=== PATIENT | female | born 1995 | race American Indian/Alaskan Native ===

== ENCOUNTER 2020-11-13 14:41 | Emergency (ER) | payer OTHER ==
[2020-11-13 16:07] VITALS: BP 122/60
[2020-11-13 16:30] LABS: Basophils % (Auto) 0.6 % (0.0-1.8); Eosinophils # (Auto) 0.1 K/mm3 (0.0-0.4); Eosinophils % (Auto) 1.4 % (0.0-4.3); Hematocrit 37.3 % (30.3-42.9); Hemoglobin 12.2 gm/dl (10.1-14.3); Lymphocytes # (Auto) 2.7 K/mm3 (1.2-5.4); Lymphocytes % (Auto) 33.1 % (13.4-35.0); Mean Corpuscular HGB Conc 33 % (30-34); Mean Corpuscular Volume 81 fl (79-97); Monocytes # (Auto) 0.6 K/mm3 (0.0-0.8); Monocytes % (Auto) 7.3 % (0.0-7.3); Platelet Count 266 K/mm3 (140-440); Red Blood Count 4.58 M/mm3 (3.65-5.03); Red Cell Distribution Width 14.5 % (13.2-15.2)
[2020-11-13 16:55] LABS: Alanine Aminotransferase 25 units/L (7-56); Albumin 4.2 g/dL (3.9-5); Blood Urea Nitrogen 13 mg/dL (7-17); Calcium 9.4 mg/dL (8.4-10.2); Hemolysis Index 28
[2020-11-13 17:08] LABS: BUN/Creatinine Ratio 19
[2020-11-13 17:24] LABS: Bacteria,Urine 2+ /HPF (Negative); Bilirubin,Urine NEG (Negative); Blood,Urine NEG (Negative); Color,Urine Yellow (Yellow); Mucus,Urine FEW /HPF; Protein,Urine <15 mg/dL mg/dL (Negative); Urobilinogen,Urine < 2.0 mg/dL (<2.0)
[2020-11-13] MEDS ORDERED: HYOSCYAMINE SUBL 0.125 MG TAB SL ONE (21:03)
[2020-11-13] MEDS ORDERED: KETOROLAC 30 MG/1 ML INJ IV STA (21:03)
--- NOTE | 2020-11-13 22:24 | Cat Scan Report ---
CT ABDOMEN AND PELVIS WITH CONTRAST INDICATION / CLINICAL INFORMATION: Patient complains of lower abdominal pain.. TECHNIQUE: Axial CT images were obtained through the abdomen and pelvis following the administration of intraven ous contrast. All CT scans at this location are performed using CT dose reduction for ALARA by means of automated exposure control. COMPARISON: None available. FINDINGS: LOWER CHEST: No significant abnormality. LIVER: No significant abnormality. GALLBLADDER: Calcified stones are seen within the gallbladder lumen. No gallbladder wall thickening o r pericholecystic edema/inflammation. PANCREAS: No significant abnormality. SPLEEN: No significant abnormality. ADRENALS: No significant abnormality. KIDNEYS / URETERS: No significant abnormality. URINARY BLADDER: No significant abnormality. REPRODUCTIVE ORGANS: There is a 2.0 cm left ovarian cyst. STOMACH / SMALL BOWEL: No significant abnormality. COLON: No significant abnormality. APPENDIX: No significant abnormality. PERITONEUM: No free fluid. No free air. No fluid collection. LYMPH NODES: No significant adenopathy. AORTA / ARTERIES: No significant abnormality. IVC / VEINS: No significant abnormality. SKELETAL SYSTEM: No significant abnormality. ADDITIONAL FINDINGS: None. IMPRESSION: 1. No acute abdominopelvic abnormality. 2. Uncomplicated cholelithiasis. 3. 2 cm left ovarian cyst. Signer Name: Isrrael Ratliff MD Signed: 11/13/2020 10:19 PM Workstation Name: [id number]
--- NOTE | 2020-12-15 22:38 | Emergency Department Report ---
ED Abdominal Pain HPI - General Chief Complaint: Abdominal Pain Stated Complaint: ABD PAIN Time Seen by Provider: 11/13/20 18:27 Source: patient Mode of arrival: Ambulatory Limitations: No Limitations - History of Present Illness Initial Comments: 25-year-old -[place] female with no sniffing past medical history presents emerged department complaining of abdominal pain off and on since May 2020 associated with occasional episodes of nausea and and vomiting. She reports no diarrhea, no hemoptysis no hematemesis no hematochezia, no fever, chills, sweats sweats patient does have a and reports been having some some issues with his pain that have been worsening since that time. She reports no trauma. MD Complaint: abdominal pain Location: LUQ, RUQ Radiation: epigastric Migration to: no migration Severity scale (0 -10): 0 Quality: cramping, aching, dull Consistency: intermittent, colicky Improves With: nothing Worsens With: nothing Associated Symptoms: nausea, vomiting. denies: constipation, dysuria, hematemesis, hematuria, anorexia, syncope - Related Data Previous Rx's Medication Instructions Recorded Last Taken Type Ketorolac [Toradol] 10 mg PO Q6H PRN #14 tablet 11/13/20 Unknown Rx Allergies Allergy/AdvReac Type Severity Reaction Status Date / Time No Known Allergies Allergy Unverified 09/17/19 06:55 ED Review of Systems ROS: Stated complaint: ABD PAIN Other details as noted in HPI Comment: All other systems reviewed and negative ED Past Medical Hx - Social History Smoking Status: Never Smoker Substance Use Type: None - Medications Home Medications: Home Medications Medication Instructions Recorded Confirmed Last Taken Type Ketorolac [Toradol] 10 mg PO Q6H PRN #14 tablet 11/13/20 Unknown Rx ED Physical Exam - General Limitations: No Limitations General appearance: alert, in no apparent distress - Head Head exam: Present: atraumatic, normocephalic - Eye Eye exam: Present: normal appearance, PERRL, EOMI - ENT ENT exam: Present: mucous membranes moist - Neck Neck exam: Present: normal inspection - Respiratory Respiratory exam: Present: normal lung sounds bilaterally. Absent: respiratory distress, wheezes, rales - Cardiovascular Cardiovascular Exam: Present: regular rate, normal rhythm. Absent: systolic murmur, diastolic murmur, rubs, gallop - GI/Abdominal GI/Abdominal exam: Present: soft, tenderness (To the upper quadrant with deep palpation. Questionable [place] sign. No Rovsing, no Banks Sullivan, no [place] sign), normal bowel sounds. Absent: guarding, rebound, rigid - Extremities Exam Extremities exam: Present: normal inspection - Back Exam Back exam: Present: normal inspection - Neurological Exam Neurological exam: Present: alert, oriented X3 - Psychiatric Psychiatric exam: Present: normal affect, normal mood - Skin Skin exam: Present: warm, dry, intact, normal color. Absent: rash ED Course Vital Signs 11/13/20 11/13/20 16:02 23:00 Temperature 99.3 F Pulse Rate 66 69 Respiratory 18 16 Rate Blood Pressure 122/60 [Right] O2 Sat by Pulse 100 99 Oximetry ED Medical Decision Making - Lab Data Result diagrams: 11/13/20 16:12 11/13/20 16:12 - Radiology Data Radiology results: report reviewed [address] [place] [address] Cat Scan Report Signed Patient: LOREN POLLARD MR#: [id number] : 1995 Acct:[id number] Age/Sex: 25 / F ADM Date: 11/13/20 Loc: ED Attending Dr: Ordering Physician: WANG COLINDRES Date of Service: 11/13/20 Procedure(s): CT abdomen pelvis w con Accession Number(s): [id number] cc: WANG COLINDRES CT ABDOMEN AND PELVIS WITH CONTRAST INDICATION / CLINICAL INFORMATION: Patient complains of lower abdominal pain.. TECHNIQUE: Axial CT images were obtained through the abdomen and pelvis following the administration of intravenous contrast. All CT scans at this location are performed using CT dose reduction for [facility] by means of automated exposure control. COMPARISON: None available. FINDINGS: LOWER CHEST: No significant abnormality. LIVER: No significant abnormality. GALLBLADDER: Calcified stones are seen within the gallbladder lumen. No gallbladder wall thickening or pericholecystic edema/inflammation. PANCREAS: No significant abnormality. SPLEEN: No significant abnormality. ADRENALS: No significant abnormality. KIDNEYS / URETERS: No significant abnormality. URINARY BLADDER: No significant abnormality. REPRODUCTIVE ORGANS: There is a 2.0 cm left ovarian cyst. STOMACH / SMALL BOWEL: No significant abnormality. COLON: No significant abnormality. APPENDIX: No significant abnormality. PERITONEUM: No free fluid. No free air. No fluid collection. LYMPH NODES: No significant adenopathy. AORTA / ARTERIES: No significant abnormality. IVC / VEINS: No significant abnormality. SKELETAL SYSTEM: No significant abnormality. ADDITIONAL FINDINGS: None. IMPRESSION: 1. No acute abdominopelvic abnormality. 2. Uncomplicated cholelithiasis. 3. 2 cm left ovarian cyst. Signer Name: Summer Rodgers MD Signed: 11/13/2020 10:19 PM Workstation Name: [id number] Transcribed By: SS Dictated By: SUMMER RODGERS Electronically Authenticated By: SUMMER RODGERS Signed Date/Time: 11/13/202218 DD/ 16 TD/TT: Print Cancel - Medical Decision Making This patient presents with abdominal pain of unclear etiology. A CT scan was performed to evaluate for potential causes of the abdominal pain, however, neither the clinical exam nor the CT has identified an emergent etiology for the abdominal pain. Specifically, given the benign exam, the laboratory studies, and unremarkable CT, I have a very low suspicion for appendicitis, ischemic bowel, bowel perforation, or any other life threatening disease. I have discuss ed with the patient the level of uncertainty with undifferentiated abdominal pain and clearly explained the need to follow-up as noted on the discharge instructions, or return to the Emergency Department immediately if the pain worsens, develops fever, persistent and uncontrollable vomiting, or for any new symptoms or concerns. Critical care attestation.: If time is entered above; I have spent that time in minutes in the direct care of this critically ill patient, excluding procedure time. ED Disposition Clinical Impression: Abdominal pain, Gall stones Disposition: - TO HOME OR SELFCARE Is pt being admited?: No Does the pt Need Aspirin: No Condition: Stable Instructions: Cholelithiasis, [id number], Chest Wall Pain, [id number], Nonspecific Chest Pain, Adult, Nonspecific Chest Pain, Adult, [id number], Abdominal Pain (ED) Prescriptions: Ketorolac [Toradol] 10 mg PO Q6H PRN #14 tablet PRN Reason: Pain Referrals: [facility] [Provider Group] - 3-5 Days GUILLERMO DELAROSA MD [Staff Physician] - 3-5 Days [facility], [Primary Care Provider] - 3-5 Days
== END 2020-11-13 23:00 | disposition home or self-care (01) ==
LOC: ED 14:41
DX: K80.80 Other cholelithiasis without obstruction (principal); R10.11 Right upper quadrant pain; R10.12 Left upper quadrant pain; R10.13 Epigastric pain; Z79.899 Other long term (current) drug therapy
CPT/HCPCS: 36415; 74177; 80053; 81001; 83690; 84703; 85025; 96374; 99284; J1885; Q9967